=== PATIENT | male | born 1990 | race Caucasian/White ===

== ENCOUNTER 2021-10-12 07:50 | Emergency (ER) | payer MEDICAID ==
[~2021-10-12] VITALS: Ht 162.6 cm; Wt 68.0 kg
[2021-10-12] MEDS ORDERED: ACETAMINOPHEN 325MG TABLET PO NR (08:22)
[2021-10-12] MEDS ORDERED: IBUP-2028 PO (08:44)
[2021-10-12] MEDS ORDERED: T3 PO (08:44)
[2021-10-12] MEDS ORDERED: KETOROLAC 60MG/2ML VIAL IM ONE (08:45)
[2021-10-12] MEDS ORDERED: ACETAMINOPHEN WITH CODEINE 300/30MG TABLET PO ONE (08:45)
[2021-10-12 09:20] VITALS: BP 131/93
== END 2021-10-12 09:20 | disposition home or self-care (01) ==
LOC: ER 07:50
DX: G89.29 Other chronic pain (principal); M54.9 Dorsalgia, unspecified; F17.200 Nicotine dependence, unspecified, uncomplicated; J45.909 Unspecified asthma, uncomplicated
CPT/HCPCS: 96372; 99283; J1885